=== PATIENT | male | born 1995 | race Hispanic/Latino ===

== ENCOUNTER 2018-04-11 17:24 | Emergency (ER) | payer SELFPAY ==
[2018-04-11] MEDS ORDERED: KETOROLAC 30 MG/ML INJ ONE (17:54)
[2018-04-11] MEDS ORDERED: DIAZEPAM 5 MG TABLET ONE (17:54)
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
== END 2018-04-11 18:54 | disposition home or self-care (01) ==
LOC: ER 17:24
DX: M54.12 Radiculopathy, cervical region (principal); S20.219A Contusion of unspecified front wall of thorax, initial encounter; V59.49XA Driver of pick-up truck or van injured in collision with other motor vehicles in traffic accident, initial encounter; Y92.410 Unspecified street and highway as the place of occurrence of the external cause; I10 Essential (primary) hypertension
CPT/HCPCS: 71046; 72040; 99284